=== PATIENT | male | born 1995 | race Caucasian/White ===

== ENCOUNTER 2017-01-30 01:09 | Emergency (ER) | payer OTHER ==
[2017-01-30 02:30] VITALS: BP 127/69
== END 2017-01-30 02:30 | disposition home or self-care (01) ==
LOC: EDSEX 01:09 → ED 01:09
DX: F10.129 Alcohol abuse with intoxication, unspecified (principal); S00.81XA Abrasion of other part of head, initial encounter; W19.XXXA Unspecified fall, initial encounter; Y93.89 Activity, other specified; Y92.89 Other specified places as the place of occurrence of the external cause; Y99.8 Other external cause status